=== PATIENT | male | born 1965 | race Caucasian/White ===

== ENCOUNTER → 2020-07-30 | Outpatient (CLI) | payer OTHER ==
[2020-07-30 12:31] LABS: HEMOGLOBIN 14.3 gm/dl (14.0-17.5); RED BLOOD COUNT 4.74 M/UL (4.20-5.50); WHITE BLOOD COUNT 7.3 K/UL (4.5-11.0)
[2020-07-30 13:07] LABS: BUN/CREATININE RATIO 30 (0-10)
== END ==
LOC: LAB 12:00
PROVIDERS: Nurse Practitioner Family
DX: E78.5 Hyperlipidemia, unspecified (principal); R68.89 Other general symptoms and signs; R79.89 Other specified abnormal findings of blood chemistry; R53.83 Other fatigue; R97.20 Elevated prostate specific antigen [PSA]
CPT/HCPCS: 36415; 80053; 80061; 84153; 84443; 85027

== ENCOUNTER → 2020-08-13 | Outpatient (CLI) | payer OTHER | LOC: LAB 10:51 | DX: R73.09 Other abnormal glucose (principal) | CPT/HCPCS: 36415; 83036 ==

== ENCOUNTER → 2020-09-07 | Outpatient (CLI) | payer OTHER | LOC: RAD 09:30 | DX: M54.2 Cervicalgia (principal); M25.511 Pain in right shoulder; M48.02 Spinal stenosis, cervical region; M19.011 Primary osteoarthritis, right shoulder | CPT/HCPCS: 72050; 73030 ==

== ENCOUNTER → 2020-11-05 | Outpatient (CLI) | payer OTHER ==
[2020-11-05 13:11] LABS: HEMOGLOBIN 15.5 gm/dl (14.0-17.5); RED BLOOD COUNT 5.17 M/UL (4.20-5.50); WHITE BLOOD COUNT 7.1 K/UL (4.5-11.0)
[2020-11-05 13:41] LABS: BUN/CREATININE RATIO 26 (0-10)
== END ==
LOC: LAB 12:10
PROVIDERS: Nurse Practitioner Family
DX: Z12.5 Encounter for screening for malignant neoplasm of prostate (principal); R68.89 Other general symptoms and signs; R79.89 Other specified abnormal findings of blood chemistry; E78.5 Hyperlipidemia, unspecified; R53.83 Other fatigue; R73.09 Other abnormal glucose
CPT/HCPCS: 36415; 80053; 80061; 83036; 84153; 84443; 85025

== ENCOUNTER → 2021-06-05 | Outpatient (CLI) | payer OTHER | LOC: RAD 11:32 | DX: B97.21 SARS-associated coronavirus as the cause of diseases classified elsewhere (principal); J84.9 Interstitial pulmonary disease, unspecified | CPT/HCPCS: 71046 ==

== ENCOUNTER → 2021-09-30 | Outpatient (CLI) | payer OTHER ==
[2021-09-30 11:21] LABS: HEMOGLOBIN 16.8 gm/dl (14.0-17.5); RED BLOOD COUNT 5.5 M/UL (4.20-5.50); WHITE BLOOD COUNT 10.5 K/UL (4.5-11.0)
[2021-09-30 11:51] LABS: BUN/CREATININE RATIO 24 (0-10)
== END ==
LOC: LAB 10:56
PROVIDERS: Nurse Practitioner Family
DX: E11.43 Type 2 diabetes mellitus with diabetic autonomic (poly)neuropathy (principal); E55.9 Vitamin D deficiency, unspecified; I10 Essential (primary) hypertension; R53.83 Other fatigue
CPT/HCPCS: 36415; 80053; 80061; 82607; 83036; 85025

== ENCOUNTER → 2021-11-26 | Outpatient (CLI) | payer OTHER | LOC: HEART 5 11-19 09:15 | DX: R06.02 Shortness of breath (principal); R07.9 Chest pain, unspecified; R00.2 Palpitations; E11.9 Type 2 diabetes mellitus without complications; I10 Essential (primary) hypertension | CPT/HCPCS: 78452; A9502; J2785 ==